=== PATIENT | female | born 1970 | race Caucasian/White ===

== ENCOUNTER → 2017-01-06 | Outpatient (CLI) | payer MEDICARE, MEDICAID ==
[~2017-01-06] MED LIST: ALBUTEROL-200 PUFFS/ IH; ALBUTEROL2.5 MG/NEB INH; AUGMENTIN 875-1 EACH PO; LEVAQUIN750 MG PO; MEDROL 4MG. DOSE4 MG PO; PROAIR HFA0.09 MG/AC IH; VICODIN 5/500 T1 TAB PO; VOLTAREN75 MG PO
[2017-01-06 13:58] LABS: HEMOGLOBIN 16.4 g/dL (12.2-16.2); LYMPH # 3.6 K/mm3 (0.7-4.5); LYMPH % 32.3 % (10-50.0)
[2017-01-06 15:01] LABS: BUN 13 mg/dL (7-18); GFR (ESTIMATED) 67 ML/MIN (59-)
[2017-01-07 07:42] LABS: HBsAg Screen Negative (Negative); Hep A Ab, IgM Negative (Negative); Hep B Core Ab, IgM Negative (Negative); Hep C Virus Ab <0.1 (0.0-0.9)
== END ==
LOC: LAB 13:13
PROVIDERS: Emergency Medicine
DX: R53.83 Other fatigue (principal); Z79.899 Other long term (current) drug therapy